=== PATIENT | female | born 1965 | race Caucasian/White ===

== ENCOUNTER 2023-08-15 12:58 | Emergency (ER) | payer OTHER, SELFPAY ==
[2023-08-15] VITALS (8 sets, daily range): BP systolic 78–171; BP diastolic 53–80
[2023-08-15 13:02] LABS: Glucose - Point of Care 140 mg/dl (70-99)
[2023-08-15] MEDS: NARCAN 0.400000000000000022 MG IV (13:14)
[2023-08-15] MEDS: ZOFRAN 4 MG IV (13:15)
[2023-08-15 13:28] LABS: % Basophils 0.5 % (0-2); % Eosinophils 1.5 % (0-6); % Immature Granulocytes 0.5 % (0-0.5); % Lymphocytes 29.4 % (20.5-51.1); % Monocytes 8.3 % (1.7-9.3); % Neutrophils 59.8 % (42.2-75.2); Absolute Basophils 0.1 10^3/uL (0-0.2); Absolute Eosinophils 0.3 10^3/uL (0-0.7); Absolute Immature Granulocytes 0.1 10^3/uL (0-0.05); Absolute Lymphocytes 5.4 10^3/uL (1.2-3.4); Absolute Monocytes 1.5 10^3/uL (0.1-0.6); Absolute Neutrophils 10.9 10^3/uL (1.4-6.5); Hematocrit 44.8 % (37.0-47.0); Hemoglobin 14.6 g/dL (12.0-16.0); Mean Corp Hgb Conc. 32.6 g/dL (33.0-37.0); Mean Corpuscular Hgb 28.3 pg (27.0-31.0); Mean Corpuscular Volume 86.8 fL (81.0-99.0); Mean Platelet Volume 8.6 fL (7.4-10.4); Nucleated Red Blood Cells % 0 %; Platelet Count 539 10^3/uL (130-400); Red Blood Cell Count 5.16 10^6/uL (4.20-5.40); Red Cell Dist. Width 13.6 % (11.5-14.5); White Blood Cell Count 18.3 10^3/uL (4.8-10.8)
[2023-08-15 13:45] LABS: Blood Urea Nitrogen 18 mg/dl (7-17); Calcium 9.8 mg/dl (8.4-10.2); Carbon Dioxide 27 mmol/L (22-30); Chloride 99 mmol/L (98-107); Glucose 136 mg/dl (70-99); Magnesium 1.9 mg/dl (1.6-2.3); Potassium 4.4 mmol/L (3.5-5.1); Sodium 138 mmol/L (135-145); eGFR 40.14
--- NOTE | 2023-08-15 14:30 | ED.GENMED ---
History of Present Illness
General
Chief Complaint: Unresponsive
Source: patient
Exam Limitations: none
Time Seen by Provider: 08/15/23 13:04
Nursing documentation reviewed up to this point in time: agreed with
Travel History
Have you had any contact with someone who has COVID-19?: No
Do you have any symptoms of coronavirus? Fever > 100 degrees, chills, cough, shortness of breath, sore throat, loss of taste or smell, muscle aches, or headache?: No
History of Present Illness
History of Present Illness:
Patient presents to ED from work after she was found to be somnolent and less responsive. Upon arrival to ED, patient is arousable but drowsy. Patient does report taking OxyContin chronically for pain, including this morning. Denies use of any
other illicit medications. Patient also states that she has not been feeling well for the past couple days. Denies fever. Denies headache. Denies chest pain. Denies shortness of breath.
Review of Systems
Review of Systems
Allergies reviewed?: Yes
Unable to obtain full review of systems at this time due to: due to acuity
All Other Systems: Not applicable
Phy Exam
Physical Exam
Physical Exam:
Physical Exam
General: moderate distress, not acutely ill. afebrile
Head: nc/at. pinpoint pupils noted b/l.
Neck: supple. no meningeal signs.
Heart: s1/s2 regular rate and rhythm, no murmur. equal radial pulses.
Lungs: no acute respiratory distress. clear bilaterally
Abdomen: normal bowel sounds. not tender.
Neuro: somnolent but arousable to loud voice and physical stimuli.
Skin: no rash
Psychiatric: well kept. interactive and cooperative
Extremities: no edema. no calf tenderness.
Course
Orders/Labs/Results
Orders:
Orders
08/15/23 13:02
Naloxone [Narcan] 0.4 mg .ROUTE .STK-MED ONE
08/15/23 13:04
Naloxone [Narcan] 0.4 mg IV NOW STA
Ondansetron Injectable [Zofran] 4 mg .ROUTE .STK-MED ONE
Ondansetron Injectable [Zofran] 4 mg IV NOW STA
08/15/23 13:06
Electrocardiogram (*1) Urgent
Reason for Study: QTc Monitoring
EKG- Treatment ONCE
08/15/23 13:09
Naloxone [Narcan] 0.4 mg .ROUTE .STK-MED ONE
08/15/23 13:18
Basic Metabolic Panel Urgent
Complete Blood Count/With Diff Urgent
Magnesium Urgent
Abnormal Lab Results
08/15/23 08/15/23
13:01 13:18
WBC 18.3 H 10^3/uL
(4.8-10.8)
MCHC 32.6 L g/dL
(33.0-37.0)
Plt Count 539 H 10^3/uL
(130-400)
Abs Immat Gran (auto) 0.1 H 10^3/uL
(0-0.05)
Absolute Neuts (auto) 10.9 H 10^3/uL
(1.4-6.5)
Absolute Lymphs (auto) 5.4 H 10^3/uL
(1.2-3.4)
Absolute Monos (auto) 1.5 H 10^3/uL
(0.1-0.6)
BUN 18 H mg/dl
(7-17)
Creatinine 1.5 H mg/dL
(0.6-1.0)
Glucose 136 H mg/dl
(70-99)
POC Glucose 140 H mg/dl
(70-99)
08/15/23 13:18
08/15/23 13:18
Vital Signs
Initial and Last Documented VS:
Initial Vital Signs
Pulse Resp BP Pulse Ox
78 12 78/57 92
08/15/23 13:04 08/15/23 13:04 08/15/23 13:04 08/15/23 13:04
Last Documented Vital Signs
Pulse Resp BP Pulse Ox
76 13 109/53 96
08/15/23 14:45 08/15/23 14:45 08/15/23 14:10 08/15/23 14:45
MDM/Problems Addressed
MDM/Problems Addressed:
Pt slowly becoming more difficult to arouse with verbal/physical stimuli. Decision made to administer 0.4 mg Narcan IV.
After treatment with Narcan, patient immediately became more responsive. Patient states that she typically takes her pain medication at night, but today, decided to take tablet in a.m., as she has not been feeling well for the past couple days.
Denies suicidal or homicidal ideation. Denies use of any other illicit medications. Denies taking extra tablets of the OxyContin.
Leukocytosis and increased creatinine, likely viral with GI symptoms (diarrhea), as coworkers with similar recent symptoms. Will need continual hydration and repeat blood with pcp as outpatient.
Pt given script for narcan, to be available at home. Pt to be watched closely at home by her son.
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
Informed by staff that patient decided to elope on own, after IV removal. Pt noted to ambulate with steady gait. I advised staff that pt is to be allowed to drive home. Pt with chronic narcotic use and stable off narcan > 3hrs. Pt is clinically
stable to drive home on own.
Critical care statement: A total of 40 minutes of critical care time was provided for this patient. This includes management of unstable vital signs, evaluation of the patient at bedside, reviewing the patient's pertinent medical records, review of
old EKGs and review of pertinent medical records. This time with separate from time utilized to perform the aforementioned documented procedures
*Critical Care Note
Total Time (30-74mins, 75-104mins- exclusive of procedures): 40 min
ED Attending Note
-
Portions of this chart may have been created with voice recognition software.� Occasional wrong word or��sound alike� substitutions may have occurred due to the inherent limitations of voice recognition software.
Discharge Plan
Departure
Patient Disposition: Home (Routine Discharge)
Patient with high blood pressure during this ER visit?: Yes
Discharge Problem:
Opioid overdose
Instructions: Opioid Overdose (DC)
Prescriptions:
New
naloxone [Narcan] 4 mg/actuation spray,non-aerosol
4 mg intranasal DIRECTED Qty: 2 0RF
Referrals:
NONE,* [Family Provider] -
Activity Restrictions/Additional Instructions:
As discussed, please follow up with your primary care physician for further evaluation and treatment, including repeat blood work in 1-2 wks, as blood work was mildly abnormal, likely due to ongoing viral GI illness. In addition, you are being given
prescription for Narcan, to be used with any recurrent symptoms after narcotic use. Medication needs to be accessible by family members who can provide help to you, when needed.
Interventions
Interventions:
*Risk Screen - Suicide Last Done: 08/15/23 13:04
*General Assessment Last Done: 08/15/23 13:04
*Neglect/Abuse Screening Last Done: 08/15/23 13:04
*Nursing Disposition Last Done: 08/15/23 16:00
ED- Neurological Assessment Last Done: 08/15/23 13:22
Discharge Date and Time
Discharge Date/Time: 08/15/23 16:03
Print Language: HUNGARIAN
--- NOTE | 2023-08-15 15:57 | EDRN ---
Discharge instructions provided to pt. IV removed by Karley Laughlin RN. Pt signed for discharge instructions but did not take printed paperwork or prescription for Narcan. Pt refused dispensed Narcan to take home in hand. She states 'I already have
that.' Pt with clear speech. I asked pt who was driving her home and she replied, 'I am.' I advised pt have a ride and pt stormed out of her room and exited out the side door emergency exit of the ED. I followed pt to advise she get a ride and she
did not respond or turn around. Pt continued out to the door towards the parking lot. Pt alert with steady gait. Dr. Tracy advised who further advised Dr. Patiño.
== END 2023-08-15 16:03 | disposition home or self-care (01) ==
LOC: EMR 12:58
PROVIDERS: EMERGENCY PHYSICIAN Emergency Medicine
DX: T40.2X1A Poisoning by other opioids, accidental (unintentional), initial encounter (principal); R40.0 Somnolence; R03.0 Elevated blood-pressure reading, without diagnosis of hypertension; M54.9 Dorsalgia, unspecified; G89.29 Other chronic pain; Z79.891 Long term (current) use of opiate analgesic
CPT/HCPCS: 99291; 80048; 82962; 83735; 85025; 93005